=== PATIENT | female | born 1960 | race African-American/Black ===

== ENCOUNTER 2024-09-08 08:59 | Emergency (ER) | payer MEDICARE, MEDICAID, SELFPAY ==
--- NOTE | ~2024-09-08 | CT_ITS ---
EXAMINATION: CT abdomen pelvis w con DATE: 09/08/2024 09:57 INDICATION: Epigastric pain TECHNIQUE: Computed tomography (CT) of the abdomen and pelvis was performed with 100 mL Omnipaque-350 intravenous contrast. Automated exposure control and iterative reconstruction technique were employe d. The dose-length product was 1406.45 mGy-cm. COMPARISON: None FINDINGS: Mild atelectasis in the bilateral lower lobes. Heart size is normal. Small amount of atherosclerotic coronary artery calcification. No pericardial or pleural effusion. Small sliding-type hiatal hernia. 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 Cholecystectomy clips the ga llbladder fossa. Liver, spleen, pancreas, right adrenal gland and right kidney are normal. 1.7 cm lef t adrenal nodule. 9 mm left renal cyst. There is diffuse colonic wall thickening consistent with panc olitis. No bowel obstruction. Fibroid uterus partially obscured along with portions of the otherwise unremarkable bladder by dense metallic streak artifact related to a right total hip arthroplasty. No free intraperitoneal gas or fluid. No pathologically enlarged abdominal or pelvic lymphadenopathy. Th ere is calcified atherosclerosis of the normal caliber aorta and many of the other arteries. Fusiform aneurysm of the right common iliac artery measuring up to 2.8 cm maximal diameter. The left common i liac artery is ectatic measuring up to 1.8 cm. Severe lower lumbar spondylosis. Severe left hip osteo arthritis. IMPRESSION: 1. Pancolitis which could be infectious, inflammatory or less likely ischemic in etiology. 2. Fibroid uterus. 3. Aneurysmal right common iliac artery measuring up to 2.8 cm in diameter and ectatic left common il iac artery measuring up to 1.8 cm. Reviewed, dictated and finalized at location [facility]. [facility] IMPRESSION: 1. Pancolitis which could be infectious, inflammatory or less likely ischemic i n etiology. 2. Fibroid uterus. 3. 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
[2024-09-08 08:56] VITALS: BP 140/88; PULSE 56; RESP 18; TEMP 36.6; O2SAT 99
[2024-09-08 09:20] LABS: Basophils Percent Auto 0.4 % (0.2-1.2); Eosinophils Absolute Auto 0.1 K/mm3 (0-0.3); Eosinophils Percent Auto 1.3 % (0-4.4); Hematocrit 33.6 % (37.0-47.0); Hemoglobin 11.1 g/dL (12.0-15.0); Immature Granulocyte Absolute 0.03 K/mm3 (0.00-0.031); Immature Granulocyte Percent A 0.6 % (0-0.5); Lymphocytes Absolute Auto 1.04 K/mm3 (0.9-3.2); Lymphocytes Percent Auto 19.3 % (18.3-44.2); Mean Corpuscular Hemoglobin 28.7 pg (26-34); Mean Corpuscular Volume 86.8 fl (80-100); Mean Platelet Volume 9.8 fl (7.4-10.4); Monocytes Absolute Auto 0.2 K/mm3 (0.1-0.6); Monocytes Percent Auto 4.5 % (2.6-8.5); Neutrophils Percent Auto 73.9 % (45.5-73.1); Platelet Count Result 252 k/mm3 (150-375); Red Blood Count 3.87 M/mm3 (4.2-5.4); Red Cell Distribution Width 13.8 % (11.5-14.5); White Blood Count 5.4 K/mm3 (4.5-10.0)
[2024-09-08 09:31] LABS: Alanine Aminotransferase 12 U/L (6-35); Albumin Level 3.6 g/dL (3.5-5.1); Alkaline Phosphatase 79 U/L (38-126); Anion Gap 2 mmol/L (4-12); Aspartate Amino Transferase 28 U/L (14-36); Bilirubin,Total 0.8 mg/dL (0.2-1.3); Blood Urea Nitrogen 13 mg/dL (7-17); Calcium 8.8 mg/dL (8.4-10.2); Carbon Dioxide 26 mmol/L (22-30); Chloride 113 mmol/L (98-107); Estimated CRCL calculation 64 ml/min; Estimated Glomerular Filt Rate > 60; Glucose 89 mg/dL (65-110); Lipase 152 U/L (23-300); Potassium 3.5 mmol/L (3.4-5.0); Sodium 141 mmol/L (137-145)
[2024-09-08 09:38] VITALS: BP 123/90; PULSE 59; RESP 16; O2SAT 97
--- NOTE | 2024-09-08 09:39 | PC.NURSE ---
Pt to CT via stretcher at this time
[2024-09-08 09:47] LABS: Add Urine Microscopic? YES; Appearance Urine Clear (Clear); Bacteria Urine 4+ /hpf; Bilirubin Urine Negative (Negative); Blood Urine Negative (Negative); Color Urine Yellow (Yellow); Glucose Urine UA Negative (Negative); Ketones Urine 1+ mg/dL (Negative); Leukocyte Esterase Ur 1+ LEU/UL (Negative); Nitrate Urine Positive (Negative); Non Pathogenic Casts 0-2; Protein Urine Negative (Negative); Specific Grav Ur 1.011 (1.001-1.035); Squamous Epithelial Cell Urine None Seen /hpf (Few); pH Urine 7.5 (5.0-9.0)
[2024-09-08] MEDS: SODIUM CHLORIDE 0.9% IV 1,000 ML 999 ML IV CONT (10:00)
[2024-09-08] MEDS: ONDANSETRON INJ 4 MG/2 ML VIAL IV PUSH (10:01)
--- NOTE | 2024-09-08 10:01 | ED.ABDPAIN ---
HPI - Abdominal Pain General Chief Complaint: Abdominal Pain Stated Complaint: abd pain Time Seen by Provider: 09/08/24 09:07 History of Present Illness HPI narrative: Patient is a 63-year-old female who presents ER with abdominal pain. Ongoing for the last 2 days. Associated with diarrhea for a week. Reports pain is in epigastric region. No radiation. Aching. Minimal vomiting. Reports she recently left the retirement where she had been for last 2 years after suffering a cardiac arrest. She left on her own accord because she did not like the facility and relocated to the [facility]. She had previously been in [place], [place]. Related Data Allergies Allergy/AdvReac Type Severity Reaction Status Date / Time lisinopril Allergy Unknown Verified 09/08/24 09:15 metformin Allergy Unknown Verified 09/08/24 09:15 morphine Allergy Unknown Verified 09/08/24 09:15 oxycodone Allergy Unknown Verified 09/08/24 09:15 Review of Systems Review of Systems: All systems reviewed & are unremarkable except as noted in HPI and below Constitutional: Constitutional: Reports no additional constitutional complaints ENT: Reports system reviewed and no additional complaints, except as documented Cardiovascular: Cardiovascular: Reports no additional cardiovascular complaints Respiratory: Respiratory: Reports no additional respiratory complaints Gastrointestinal: Gastrointestinal: Reports abdominal pain, Reports diarrhea, Denies nausea and Denies vomiting Genitourinary: Genitourinary: Reports no additional female genitourinary complaints Exam Narrative: GENERAL: Well-appearing, well-nourished, and in no acute distress. HEAD: Normocephalic, atraumatic. EYES: PERRL and EOMI. ENT: Mucous membranes moist. CHEST: Clear to auscultation. No respiratory distress. HEART: Regular rate and rhythm. Normal peripheral pulses. ABDOMEN: Soft, Mild epigastric pain with guarding, nondistended. EXTREMITIES: Normal range of motion. No edema. SKIN: Warm, dry, no rash. NEURO: Alert and oriented x3. PSYCH: Normal mood and affect. Course Course Emergency Course: Blood work unremarkable. Urine with evidence of infection. Patient also has colitis on CT but no C diff. will treat with oral antibiotics at home. Patient refuses to go back to rehab facility. She does not have a PCP so she has not been able to get home health. care coordination evaluated the patient. She would like to go home by ambulance and is aware that she will be billed for it. Vital Signs Vital signs: Vital Signs Temperature 97.8 F 09/08/24 08:56 Pulse Rate 56 L 09/08/24 08:56 Respiratory Rate 18 09/08/24 08:56 Blood Pressure 140/88 09/08/24 08:56 Pulse Oximetry 99 09/08/24 08:56 Oxygen Delivery Room Air 09/08/24 08:56 Temperature 97.5 F L 09/08/24 11:04 Pulse Rate 70 09/08/24 11:04 Respiratory Rate 14 09/08/24 11:04 Blood Pressure 107/95 H 09/08/24 11:04 Pulse Oximetry 100 09/08/24 11:04 Oxygen Delivery Room Air 09/08/24 08:56 MDM - Abdominal Pain Lab Data 09/08/24 09:13 09/08/24 09:13 Labs: Lab Results 09/08/24 09/08/24 09/08/24 Range/Units 09:13 09:38 12:04 WBC 5.4 (4.5-10.0) K/mm3 RBC 3.87 L (4.2-5.4) M/mm3 Hgb 11.1 L (12.0-15.0) g/dL Hct 33.6 L (37.0-47.0) % MCV 86.8 (80-100) fl MCH 28.7 (26-34) pg MCHC 33.0 (32-36) g/dl RDW 13.8 (11.5-14.5) % Plt Count 252 (150-375) k/mm3 MPV 9.8 (7.4-10.4) fl Immature Gran % (Auto) 0.6 H (0-0.5) % Neut % (Auto) 73.9 H (45.5-73.1) % Lymph % (Auto) 19.3 (18.3-44.2) % [place] % (Auto) 4.5 (2.6-8.5) % Eos % (Auto) 1.3 (0-4.4) % Baso % (Auto) 0.4 (0.2-1.2) % Lymph # (Auto) 1.04 (0.9-3.2) K/mm3 [place] # (Auto) 0.2 (0.1-0.6) K/mm3 Eos # (Auto) 0.1 (0-0.3) K/mm3 Baso # (Auto) 0.0 (0.0-0.1) K/mm3 Abs Immat Gran (auto) 0.03 (0.00-0.031) K/mm3 Absolute Neuts (auto) 4.0 (1.3-6.7) K/mm3 Absolute Nucleated RBC 0.000 (0.0-0.012) K/mm3 Nucleated RBC % 0.0 (0.0-0.2) % Sodium 141 (137-145) mmol/L Potassium 3.5 (3.4-5.0) mmol/L Chloride 113 H (98-107) mmol/L Carbon Dioxide 26 (22-30) mmol/L Anion Gap 2 L (4-12) mmol/L BUN 13 (7-17) mg/dL Creatinine 1.00 (0.7-1.0) mg/dL Estim Creat Clear Calc 64 ml/min Estimated GFR > 60 (59 - ) Glucose 89 (65-110) mg/dL Calcium 8.8 (8.4-10.2) mg/dL Total Bilirubin 0.8 (0.2-1.3) mg/dL AST 28 (14-36) U/L ALT 12 (6-35) U/L Alkaline Phosphatase 79 (38-126) U/L Total Protein 7.0 (6.3-8.2) g/dL Albumin 3.6 (3.5-5.1) g/dL Lipase 152 (23-300) U/L Urine Color Yellow (Yellow) Urine Appearance Clear (Clear) Urine pH 7.5 (5.0-9.0) Ur Specific [place] 1.011 (1.001-1.035) Urine Protein Negative (Negative) mg/dL Urine Glucose (UA) Negative (Negative) mg/dL Urine Ketones 1+ H (Negative) mg/dL Ur Blood (Man) Negative (Negative) Urine Nitrate Positive H (Negative) Urine Bilirubin Negative (Negative) Urine Urobilinogen 1.0 (<2.0) mg/dL Leukocyte Esterase Rfl 1+ H (Negative) MELISSA/UL Urine RBC 3-5 H (0-2) /hpf Urine WBC 11-20 H (0-3) /hpf Ur Squamous Epith Cells None seen (Few) /hpf Urine Bacteria 4+ H /hpf Urine Casts 0-2 C. difficile (PCR) Negative (NEGATIVE) Imaging Data Radiologist's impression: ITS Impressions Abdomen/Pelvis CT 09/08/24 10:07 IMPRESSION: 1. Pancolitis which could be infectious, inflammatory or less likely ischemic in etiology. 2. Fibroid uterus. 3. 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 Discharge Plan Discharge Clinical Impression: Colitis, UTI (urinary tract infection) Patient Disposition: Home, Self-Care Condition: Stable Instructions: Urinary Tract Infection in Women (ED), Infectious Colitis (ED) Additional Instructions: Please drink plenty of fluids at home. Return to the emergency department if you develop high fevers, have persistent severe abdominal pain, or have bloody stools or vomit, as these could be signs of a more serious medical emergency. Return to the emergency department if you are unable to keep down liquids because of severe nausea/vomiting. Prescriptions: New ciprofloxacin HCl 500 mg tablet 500 mg PO Q12H Qty: 14 0RF metronidazole 500 mg tablet 500 mg PO Q8H Qty: 21 0RF Follow-up/Referrals: PHYSICIAN,EXECUTIVE OFFICE MANAGER [Primary Care Provider] - Isaias Chavarria MD [Physician] - 1 Week
[2024-09-08 10:02] VITALS: BP 155/79; PULSE 52; RESP 16; O2SAT 100
--- NOTE | 2024-09-08 11:02 | PC.NURSE ---
Report given to Katie CHAVIRA, all questions answered
[2024-09-08 11:04] VITALS: BP 107/95; PULSE 70; RESP 14; TEMP 36.4; O2SAT 100
--- NOTE | 2024-09-08 11:38 | PC.NURSE ---
Patient states to this RN that she will have to have an ambulance take her home. Patient states that she is unable to get up the stairs at her residence. Patient also states during this illness she has experiences incontinence. notified.
[2024-09-08 12:58] LABS: Toxigenic C. Diff NEGATIVE (NEGATIVE)
--- NOTE | 2024-09-08 14:30 | PCCCNOTE ---
Spoke with pt regarding home care needs. Pt states need for ambulance to get her in the house due to poor mobility. She has been in contact with [facility] but they state she needs a PCP. Asked if she is willing to go back to a Nursing facility but she was adamant on not going to a NH. I informed Dr Field that an ambulance would be needed to return pt back home.
[2024-09-08 14:34] VITALS: BP 131/92; PULSE 89; RESP 19; TEMP 36.6; O2SAT 98
--- NOTE | 2024-09-08 18:42 | PC.NURSE ---
[facility] here to transport patient back home at this time.
== END 2024-09-08 18:48 | disposition home or self-care (01) ==
PROVIDERS: Emergency Provider Emergency Medicine
DX: K52.9 Noninfective gastroenteritis and colitis, unspecified (principal); N39.0 Urinary tract infection, site not specified; D25.9 Leiomyoma of uterus, unspecified; I72.3 Aneurysm of iliac artery
CPT/HCPCS: 36415; 74177; 80053; 81001; 83690; 85025; 87077; 87086; 87186; 87493; 96361; 96374; 99284; J2405; J7030; Q9967